=== PATIENT | female | born 2005 | race Caucasian/White ===

== ENCOUNTER 2023-12-08 16:35 | Emergency (ER) | payer OTHER, SELFPAY ==
[2023-12-08 16:41] VITALS: BP 115/75
--- NOTE | 2023-12-08 18:11 | ED.GENMED ---
History of Present Illness
General
Chief Complaint: Abdominal Symptoms
Source: patient
Exam Limitations: none
Time Seen by Provider: 12/08/23 17:56
Travel History
Have you had any contact with someone who has COVID-19?: No
Do you have any symptoms of coronavirus? Fever > 100 degrees, chills, cough, shortness of breath, sore throat, loss of taste or smell, muscle aches, or headache?: No
History of Present Illness
History of Present Illness:
This is a 18 year old female that comes in with c/o right sided abd pain. States that she has had pain on the right sided with constipation. Sates that she was awake 2 times during the night with pain. States that this morning she still had pain but
she went to the Bathroom and it was slightly better. States that yesterday she also felt a little dizzy. State that today she was nauseated and had pain with walking. States that she also had a headache today but this is gone. Mom states that her
brother just had his appendix out. Denies any fever, chills, chest pain, SOB, vomiting, diarrhea, dizziness, urinary burning.
Past History
Past History
ED Past Medical History: GERD, Other (Concussion, Anorexia, Lupus) and Other (POTS)
ED Past Surgical History: None
Social History
Tobacco: Non-smoker
Alcohol: None
Drug: None
Personal: Single
Living: with family
Employment: Student
Family History
Family History: Other
Review of Systems
Review of Systems
All Other Systems: ROS reviewed and negative except as documented in HPI and ROS
Constitutional: Reports no symptoms; Denies fever or chills
EENT: Reports no symptoms
Respiratory: Reports no symptoms; Denies cough or trouble breathing
Cardiac: Reports no symptoms; Denies chest pain
ABD/GI: Reports abdominal pain and nausea; Denies vomiting or diarrhea
: Reports no symptoms; Denies dysuria, frequency or urgency
Musculoskeletal: Reports no symptoms
Skin: Reports no symptoms
Neurological: Reports dizzy (Yesterday) and headache (earlier but this is gone)
Psychiatric: Reports no symptoms
Phy Exam
General Physical Exam
General Presentation: no apparent distress
General age: appears stated age
General Skin: warm and dry
General Habitus: normal
General Mental: alert
General Hydration: appears well hydrated
ENT Exam
ENT Exam: TM's normal, pharynx normal and neck supple
Eye Exam
Eye Exam: EOMI
Cardiovascular Exam
Cardiovascular Exam: regular rate/rhythm, no edema, no murmur and normal peripheral pulses
Pulmonary Exam
Pulmonary Exam: lungs clear, no respiratory distress, no rales, chest non tender, no crackles, no rhonchi, no wheezing and no cough
Gastrointestinal Exam
Gastrointestinal Exam: normal bowel sounds, soft, no organomegaly, no pulsatile mass, non distended and tender (Right lower abd tenderness with palpation)
Musculoskeletal Exam
Musculoskeletal Exam: full ROM and no edema
Skin Exam
Skin Exam: normal color, warm/dry, no rash and no petechia
Psychiatric Exam
Psychiatric Exam: normal mood/affect
Course
Orders/Labs/Results
Orders:
Orders
12/08/23 18:10
0.9% Sodium Chloride 1000 ml [Nss] 1,000 ml IV BOLUS
Iohexol [Omnipaque] See Protocol PO NOW STA
Test Result ONCE
US Pelvis Only (non-obstetric) Urgent
Comment:
Reason For Exam: Right lower abd pain
12/08/23 18:11
CT Abd/pel W Iv And Oral Contr Urgent
Comment:
Reason For Exam: Right lower abd pain
12/08/23 18:39
Complete Blood Count/With Diff Urgent
Comprehensive Metabolic Panel Urgent
HCG, Serum Qualitative Screen Urgent
Urinalysis Reflex To Culture Urgent
Date Specimen was Collected: 12/08/23
Time Specimen was Collected: 18:28
Abnormal Lab Results
12/08/23
18:39
RDW 11.4 L %
(11.5-14.5)
12/08/23 18:39
12/08/23 18:39
Labs unremarkable. Urine negative for infection. HCG negative.
Vital Signs
Initial and Last Documented VS:
Initial Vital Signs
Temp Pulse Resp BP Pulse Ox
98.8 F 78 16 115/75 97
12/08/23 16:41 12/08/23 16:41 12/08/23 16:41 12/08/23 16:41 12/08/23 16:41
Last Documented Vital Signs
Temp Pulse Resp BP Pulse Ox
98.8 F 78 16 115/75 97
12/08/23 16:41 12/08/23 16:41 12/08/23 16:41 12/08/23 16:41 12/08/23 16:41
MDM/Problems Addressed
Differential Diagnosis Includes:
Ovarian cyst rupture, Appendicitis, Constipation
MDM/Problems Addressed:
This is a 18 year old female that comes in with c/o right lower abd pain. States that this started yesterday. Mom states that her brother just had his appendix out.
Will get labs, US to r/o ovarian cyst or Torsion and if negative will get CT scan. Will give IV fluids, get urine. Offered pain medication but patient refused.
Back into see patient and Mom. Explained that her US is [place] along with the CT scan. No sign of constipation. Patient to increase her water intake to 8-8oz glasses daily. Follow up with the family doctor for recheck. Return with any fever,
increased or changing pain, or any other concerns.
Chronic conditions affecting care:
NA
Acute Exacerbation and/or Progression of Chronic Illness:
NA
*Radiology
Radiology exam reviewed: radiology read reviewed (US- Normal uterus. Normal endometrial stripe measuring 2mm in thickness. normal bilateral ovaries which contain tiny physiologic follicles. both ovaries demonstrated arterial and venous Doppler flow.
Trace free fluid in the pelvis is likely physiologic. No appreciable adnexal masses. ), all reviewed NAD by ED Provider (CT night hawk- NO CT evidence of acute abominal or pelvis process. Normal liver, gallbadder, pancreas, spleen and kidneys.
Normal appendix, No intestinal obstruction or free air. Grossly normal uterus and ovaries by CT. small amount of free fluid in the pelvic cul-de-sac which is of physiologic ) and other (CT cont- volume for age. )
*Pulse Oximetry
Patient hypoxic: no
*EKG
Interpreted by ED Provider?: NA
Rate: EKG- N/A
*Narrow Fabric Calenderer Interpretation
Rate: Narrow Fabric Calenderer- N/A
*Critical Care Note
Total Time (30-74mins, 75-104mins- exclusive of procedures): Not Applicable
ED Attending Note
-
Portions of this chart may have been created with voice recognition software.� Occasional wrong word or��sound alike� substitutions may have occurred due to the inherent limitations of voice recognition software.
Discharge Plan
Departure
Patient Disposition: Home (Routine Discharge)
Date of Disposition: 12/08/23
Time of Disposition: 21:45
Patient with high blood pressure during this ER visit?: No
Condition: Good
Covid-19: Not Applicable
Discharge Problem:
Abdominal pain
Instructions: Abdominal Pain
Prescriptions:
No Action
No Current Medications
0
Referrals:
Robbi Capps MD [Family Provider] - Follow up in 2-3 days
Activity Restrictions/Additional Instructions:
As discussed, your blood work is normal along with your CT and US. Please increase your water intake to 8-8oz glasses daily. Follow up with the family doctor for recheck. IF YOU HAVE INCREASED OR CHANGING PAIN, FEVER, OR YOU HAVE ANY OTHER CONCERNS
PLEASE RETURN TO THE EMERGENCY ROOM.
Interventions
Interventions:
*Risk Screen - Suicide Last Done: 12/08/23 16:41
*General Assessment Last Done: 12/08/23 16:41
*Neglect/Abuse Screening Last Done: 12/08/23 18:52
ED- Fall Risk Assessment Last Done: 12/08/23 18:53
*ED COVID-19 Vaccine History Last Done: 12/08/23 18:52
ND-Qfjctf-Thrgblihuk Assessment Last Done: 12/08/23 18:54
Discharge Date and Time
Print Language: VENEZUELAN
[2023-12-08] MEDS: OMNIPAQUE 50 ML PO (18:40)
[2023-12-08] MEDS: NSS 1000 IV (18:40)
[2023-12-08 18:51] VITALS: BMI 24.8
[2023-12-08 18:57] LABS: % Basophils 0.5 % (0-2); % Eosinophils 1.7 % (0-6); % Immature Granulocytes 0.2 % (0-0.5); % Lymphocytes 41.5 % (20.5-51.1); % Monocytes 7.8 % (1.7-9.3); % Neutrophils 48.3 % (42.2-75.2); Absolute Eosinophils 0.1 10^3/uL (0-0.7); Absolute Lymphocytes 2.5 10^3/uL (1.2-3.4); Absolute Monocytes 0.5 10^3/uL (0.1-0.6); Absolute Neutrophils 2.9 10^3/uL (1.4-6.5); Hematocrit 39.1 % (37.0-47.0); Hemoglobin 13.8 g/dL (12.0-16.0); Mean Corp Hgb Conc. 35.3 g/dL (33.0-37.0); Mean Corpuscular Hgb 30.3 pg (27.0-31.0); Mean Corpuscular Volume 85.7 fL (81.0-99.0); Mean Platelet Volume 9.6 fL (7.4-10.4); Nucleated Red Blood Cells % 0 %; Platelet Count 220 10^3/uL (130-400); Red Blood Cell Count 4.56 10^6/uL (4.20-5.40); Red Cell Dist. Width 11.4 % (11.5-14.5); White Blood Cell Count 5.9 10^3/uL (4.8-10.8)
[2023-12-08 19:03] LABS: Urine Albumin Negative (Neg - Trace); Urine Bilirubin Negative (Negative); Urine Character Clear (Clear); Urine Color Straw; Urine Glucose Negative (Negative); Urine Ketone Negative (Negative); Urine Leukocyte Negative (Negative); Urine Nitrite Negative (Negative); Urine Occult Blood Negative (Negative); Urine Urobilinogen Negative (Neg - 1+)
[2023-12-08 19:14] LABS: ALT (SGPT) 17 U/L (0-35); AST (SGOT) 25 U/L (14-36); Albumin 4.5 g/dl (3.5-5.0); Alkaline Phosphatase 71 U/L (38-126); Blood Urea Nitrogen 11 mg/dl (7-17); Calcium 9.6 mg/dl (8.4-10.2); Carbon Dioxide 28 mmol/L (22-30); Chloride 102 mmol/L (98-107); Estimated Creatinine Clearance > 125 ml/min; Glucose 94 mg/dl (70-99); Potassium 3.9 mmol/L (3.5-5.1); Sodium 138 mmol/L (135-145); Total Bilirubin 0.2 mg/dl (0.2-1.3); Total Protein 7.8 g/dl (6.3-8.2); eGFR > 60.00
[2023-12-08 19:19] LABS: HCG, Serum Qualitative Screen Negative
== END 2023-12-08 22:09 | disposition home or self-care (01) ==
LOC: EMR 16:35
PROVIDERS: Clinical Nurse Specialist Family Health; EMERGENCY PHYSICIAN Student in an Organized Health Care Education/Training Program; FAMILY PHYSICIAN Family Medicine
DX: R10.31 Right lower quadrant pain (principal); R42 Dizziness and giddiness; R51.9 Headache, unspecified; R11.0 Nausea; K59.00 Constipation, unspecified; K21.9 Gastro-esophageal reflux disease without esophagitis; G90.A Postural orthostatic tachycardia syndrome [POTS]; M32.9 Systemic lupus erythematosus, unspecified; Z87.820 Personal history of traumatic brain injury; Z88.1 Allergy status to other antibiotic agents; Z91.010 Allergy to peanuts
CPT/HCPCS: 99284; 96360; 74177; 76856; 80053; 81003; 84703; 85025; Q9967